=== PATIENT | male | born 1960 | race Caucasian/White ===

== ENCOUNTER 2017-08-20 09:42 | Day surgery (SDC) | payer BC ==
[2017-08-20] MEDS ORDERED: Lactated Ringers 1,000 ML IV SCH (10:00)
[2017-08-20] MEDS ORDERED: Sodium Chloride 0.9% 10 ML Syringe FLUSH PRN (10:00)
[2017-08-20] MEDS ORDERED: Midazolam 1 MG/ML 2 ML SDV ONE ×3 (10:37→11:32)
[2017-08-20] MEDS ORDERED: fentaNYL 100 MCG/2 ML SDV ONE ×2 (10:37→10:45)
[2017-08-20] MEDS ORDERED: Propofol 200 MG/20 ML SDV ONE ×2 (10:38→10:45)
--- NOTE | 2017-08-20 10:44 | PCM.PN ---
- General Info Date of Service: 08/20/17 - Review of Systems Systems Review Comment:: 56-year-old male referred by Rony Neil for initial screening colonoscopy. He is medically stable to proceed today. His recent history and physical is reviewed and no significant changes are noted. He denies any recent change in bowel pattern or family history of colon cancer. I have discussed the proposed colonoscopy with the patient. Risks such as but not limited to bleeding and GI injury reviewed. He appears to understand and agrees to proceed. - Patient Data Vitals - Most Recent: Last Vital Signs Temp 98.1 F 08/20/17 10:28 Pulse 64 08/20/17 10:28 Resp 18 08/20/17 10:28 BP 139/67 08/20/17 10:28 Pulse Ox 96 08/20/17 10:28 Weight - Most Recent: 145.15 kg Med Orders - Current: Current Medications Lactated Ringer's (Ringers, Lactated) 1,000 mls @ 70 mls/hr IV ASDIRECTED LORENA Last Admin: 08/20/17 10:18 Dose: 70 mls/hr Sodium Chloride (Saline Flush) 10 ml FLUSH ASDIRECTED PRN PRN Reason: Keep Vein Open Discontinued Medications Fentanyl (Sublimaze) Confirm Administered Dose 100 mcg .ROUTE .STK-MED ONE Stop: 08/20/17 10:38 Midazolam HCl (Versed 1 Mg/Ml) Confirm Administered Dose 2 mg .ROUTE .STK-MED ONE Stop: 08/20/17 10:38 Propofol (Diprivan 20 Ml) Confirm Administered Dose 400 mg .ROUTE .STK-MED ONE Stop: 08/20/17 10:39 - Problem List Review Problem List Initiated/Reviewed/Updated: Yes - Assessment Assessment:: Colon cancer screening - Plan Plan:: Colonoscopy
--- NOTE | 2017-08-20 11:23 | PCM.OPNOTE ---
- General Post-Op/Procedure Note Date of Surgery/Procedure: 08/20/17 Operative Procedure(s): Colonoscopy Findings: Normal Colon Pre Op Diagnosis: Colon cancer screening Post-Op Diagnosis: Normal Colon Anesthesia Technique: MAC Primary Surgeon: Fer Carver Pathology: none Output, Urine Amount: 0 EBL in mLs: 0 Complications: None Condition: Good Free Text/Narrative:: Intake & Output 08/19/17 08/20/17 08/20/17 22:59 06:59 14:59 Intake Total 700 Balance 700
--- NOTE | 2017-08-20 16:42 | OR ---
Date of Procedure: 08/20/2017 PREOPERATIVE DIAGNOSIS: Colon cancer screening. POSTOPERATIVE DIAGNOSIS: Normal colon. OPERATION PERFORMED: Colonoscopy. INDICATIONS FOR SURGERY: This 56-year-old male is referred for his initial screening colonoscopy. FINDINGS: The patient's colon appears normal. No polyps or other pathology were seen during the exam today. DESCRIPTION OF PROCEDURE: The patient was taken to the operating room. He was given intravenous sedation, and with him in the left lateral decubitus position, digital rectal exam was performed showing no rectal masses. The Olympus colonoscope was inserted into the rectum. The retroflexed examination of the rectal canal was performed. The scope was then carefully advanced under direct visualization through the entire length of the colon until the cecum was reached. Cecal acquisition was confirmed by noting the normal internal cecal anatomy including the appendiceal orifice and ileocecal valve. The light was also noted to transilluminate the abdominal wall in the right lower quadrant. After examining the cecum, the scope was slowly withdrawn sequentially re- examining the colonic segments until the entire colon and rectum had been fully examined. The scope was then removed and the patient was taken from the operating room in satisfactory condition. ESTIMATED BLOOD LOSS: Zero. COMPLICATIONS: None. PROGNOSIS: Good. ANTONIO Carver MD /[id number]
== END 2017-08-20 12:20 | disposition home or self-care (01) ==
LOC: LL.SDS 09:42
PROVIDERS: ATTEND Surgery
DX: Z12.11 Encounter for screening for malignant neoplasm of colon (principal); I10 Essential (primary) hypertension; G47.33 Obstructive sleep apnea (adult) (pediatric); E78.4 Other hyperlipidemia; E16.2 Hypoglycemia, unspecified; E66.9 Obesity, unspecified; Z68.42 Body mass index [BMI] 45.0-49.9, adult; Z79.82 Long term (current) use of aspirin; Z79.899 Other long term (current) drug therapy
CPT/HCPCS: 45378; J2250; J2704; J3010; J7120